=== PATIENT | male | born 1970 | race Caucasian/White ===

== ENCOUNTER 2019-05-12 10:43 | Emergency (ER) | payer BC, OTHER ==
[~2019-05-12] VITALS: Ht 180.3 cm; Wt 110.4 kg
[2019-05-12] MEDS ORDERED: ADACEL/BOOSTRIX VACCINE (DIPHTH/PERTUSS/ACELL/TETANUS)0.5ML SYR (90715) IM ONE (11:00)
[2019-05-12] MEDS ORDERED: ceFAZolin SOD 1 GM in D5W MINI-BAG PLUS 50 ML IV ONE (11:15)
--- NOTE | 2019-05-12 11:25 | REP ---
Left long finger series: For views. History: Injury. Findings: Four views of the left long finger demonstrate a soft tissue and bone amputation injury involving the distal tuft of the distal phalanx of the left long finger. There are bone fragments at the remaining aspect of the distal tuft. No opaque foreign body is seen. Impression: Soft tissue and bony amputation injury distal tuft left long finger. Electronically Signed by Esdras Ramos MD 05/12/2019 11:17 A
[2019-05-12] MEDS ORDERED: MORPHINE 2 MG/ML 1ML VIAL (J2270) IV ONE (11:45)
[2019-05-12] MEDS ORDERED: NORC1TAB7 PO (12:08)
[2019-05-12 12:28] VITALS: BP 155/79
== END 2019-05-12 12:32 | disposition home or self-care (01) ==
LOC: M ED 10:43
DX: S68.113A Complete traumatic metacarpophalangeal amputation of left middle finger, initial encounter (principal); W29.3XXA Contact with powered garden and outdoor hand tools and machinery, initial encounter; Y92.099 Unspecified place in other non-institutional residence as the place of occurrence of the external cause; Y93.89 Activity, other specified; Y99.9 Unspecified external cause status
CPT/HCPCS: 73140; 90471; 90715; 96365; 96375; 99284; J0690; J2270

== ENCOUNTER → 2021-12-25 | Outpatient (REF) | payer BC, OTHER ==
[~2021-12-25] MED LIST: NORC1TAB7 PO
[2021-12-25 13:02] LABS: URIC ACID 6.1 MG/DL (3.5-7.2)
== END ==
LOC: M LAB REF 11:19
PROVIDERS: ATTEND Registered Nurse
DX: M11.262 Other chondrocalcinosis, left knee (principal); N52.9 Male erectile dysfunction, unspecified

== ENCOUNTER → 2022-07-16 | Outpatient (CLI) | payer BC, OTHER | LOC: M SLEEP 20:00 | PROVIDERS: ATTEND Internal Medicine Pulmonary Disease | DX: G47.33 Obstructive sleep apnea (adult) (pediatric) (principal) ==

== ENCOUNTER 2022-09-23 06:40 | Day surgery (SDC) | payer BC, OTHER ==
[~2022-09-23] VITALS: Ht 180.3 cm; Wt 104.3 kg
[~2022-09-23 06:40] MED LIST changes: +NS 1,000 ML IV ONE
[2022-09-23] MEDS ORDERED: propofoL 200 MG/20 ML VIAL As Ordered ONE ×3 (07:07→07:42)
[2022-09-23 07:50] VITALS: TEMP 97.7
[2022-09-23 08:10] VITALS: BP 120/78; O2SAT 95
== END 2022-09-23 08:12 | disposition home or self-care (01) ==
LOC: M OPP 06:40
PROVIDERS: ATTEND Internal Medicine Gastroenterology
DX: Z12.11 Encounter for screening for malignant neoplasm of colon (principal); K64.0 First degree hemorrhoids

== ENCOUNTER → 2023-06-28 | Outpatient (REF) | payer BC, OTHER ==
[~2023-06-28] MED LIST changes: -NS 1,000 ML IV ONE
== END ==
LOC: M LAB REF 17:06
PROVIDERS: ATTEND Nurse Practitioner Family
DX: R97.20 Elevated prostate specific antigen [PSA] (principal)

== ENCOUNTER → 2023-12-30 | Outpatient (REF) | payer BC, OTHER | LOC: M LAB REF 11:54 | PROVIDERS: ATTEND Nurse Practitioner Family | DX: M25.50 Pain in unspecified joint (principal) ==

== ENCOUNTER → 2024-02-18 | Outpatient (CLI) | payer BC, OTHER ==
[~2024-02-18] MED LIST changes: +PROHANCE 279.3MG/ML 15ML VIAL As Ordered ONE; +PROHANCE 279.3MG/ML 5ML VIAL As Ordered ONE
== END ==
LOC: M RAD 08:19
PROVIDERS: ATTEND Nurse Practitioner Family
DX: R97.20 Elevated prostate specific antigen [PSA] (principal); N42.83 Cyst of prostate; N40.0 Benign prostatic hyperplasia without lower urinary tract symptoms
CPT/HCPCS: 72197; A9576

== ENCOUNTER → 2024-04-11 | Outpatient (REF) | payer BC, OTHER ==
[~2024-04-11] MED LIST changes: -PROHANCE 279.3MG/ML 15ML VIAL As Ordered ONE; -PROHANCE 279.3MG/ML 5ML VIAL As Ordered ONE
== END ==
LOC: M SMT 13:02
PROVIDERS: ATTEND Urology
DX: R97.20 Elevated prostate specific antigen [PSA] (principal)

== ENCOUNTER → 2024-10-24 | Outpatient (REF) | payer OTHER ==
[2024-10-26 11:48] LABS: PSA % FREE 15.0 % (calc) (>25); PSA FREE 0.6 ng/mL; PSA TOTAL 4.0 ng/mL (< OR = 4.0)
== END ==
LOC: M LAB REF 17:43
PROVIDERS: ATTEND Nurse Practitioner Family
DX: R97.20 Elevated prostate specific antigen [PSA] (principal)

== ENCOUNTER → 2024-11-01 | Outpatient (CLI) | payer OTHER | LOC: M RAD 16:02 | PROVIDERS: ATTEND Orthopaedic Surgery | DX: S83.242A Other tear of medial meniscus, current injury, left knee, initial encounter (principal); S83.262A Peripheral tear of lateral meniscus, current injury, left knee, initial encounter; M25.562 Pain in left knee; Y93.9 Activity, unspecified; Y92.9 Unspecified place or not applicable ==

== ENCOUNTER 2025-02-12 15:18 | Emergency (ER) | payer OTHER ==
[~2025-02-12] VITALS: Ht 177.8 cm; Wt 109.2 kg
[2025-02-12 15:20] VITALS: BP 135/76; TEMP 96.7; O2SAT 97
[2025-02-12] MEDS: TETANUS/DIPHTH/ACEL. PERTUSSIS 0.5 ML SYR IM ONE (15:54)
== END 2025-02-12 16:07 | disposition home or self-care (01) ==
LOC: M ED 15:18
DX: S61.211A Laceration without foreign body of left index finger without damage to nail, initial encounter (principal); W26.0XXA Contact with knife, initial encounter; Y92.009 Unspecified place in unspecified non-institutional (private) residence as the place of occurrence of the external cause; Y93.9 Activity, unspecified; Y99.9 Unspecified external cause status